=== PATIENT | male | born 2000 | race Hispanic/Latino ===

== ENCOUNTER 2025-04-21 06:45 | Emergency (ER) | payer BC ==
[2025-04-21 07:17] VITALS: PULSE 72; RESP 16; TEMP 98.4
[2025-04-21] MEDS: IBUPROFEN 600 MG TAB PO STA (07:47)
[2025-04-21 08:38] VITALS: BP 115/71; PULSE 71; RESP 16; TEMP 98.4; O2SAT 100
== END 2025-04-21 08:48 | disposition home or self-care (01) ==
LOC: ER 06:51
DX: S62.397A Other fracture of fifth metacarpal bone, left hand, initial encounter for closed fracture (principal); W22.09XA Striking against other stationary object, initial encounter; Y93.71 Activity, boxing; Y92.89 Other specified places as the place of occurrence of the external cause
CPT/HCPCS: 99283